=== PATIENT | female | born 1985 | race African-American/Black ===

== ENCOUNTER 2016-11-23 17:30 | Emergency (ER) | payer SELFPAY ==
[~2016-11-23] VITALS: Ht 160 cm; Wt 75.0 kg
[2016-11-23 17:38] VITALS: BP 124/90
== END 2016-11-23 20:00 | disposition left against medical advice (07) ==
LOC: ER 19:45
DX: M54.9 Dorsalgia, unspecified (principal); Z53.21 Procedure and treatment not carried out due to patient leaving prior to being seen by health care provider